=== PATIENT | female | born 1995 | race Hispanic/Latino ===

== ENCOUNTER 2017-11-26 23:02 | Emergency (ER) | payer BC ==
[2017-11-26 23:09] VITALS: BP 130/76; PULSE 115; RESP 16; O2SAT 100
--- NOTE | 2017-11-26 23:58 | ED PDOC ---
History of Present Illness History of Present Illness: 22 year old female presents to ED with complaints of flu-like symptoms and has no past medical history. (+) headache, body aches, chills, and decreased PO intake. (-) nausea, vomiting, or diarrhea. Notes that ibuprofen has provided little to no relief. Denies receiving the flu vaccine this flu season. PCP: None HPI: Influenza Time Seen by Provider: 11/26/17 23:12 Chief Complaint: Flu-like Symptoms Chief Complaint (Provider): Flu-Like Symptoms History Per: Patient Exam Limitations: no limitations Onset/Duration Of Symptoms: Days (x1) Symptoms include: headache, bodyaches Past Medical History Reviewed: Historical Data, Nursing Documentation, Vital Signs Vital Signs: Last Vital Signs Temp 101.2 F H 11/26/17 23:06 Pulse 115 H 11/26/17 23:06 Resp 16 11/26/17 23:06 BP 130/76 11/26/17 23:06 Pulse Ox 100 11/26/17 23:06 - Medical History PMH: No Chronic Diseases - Surgical History Surgical History: No Surg Hx - Family History Family History: States: Unknown Family Hx - Social History Current smoker - smoking cessation education provided: No Ex-Smoker (has not smoked in the last 12 months): No Alcohol: None Drugs: Denies - Home Medications Home Medications: Ambulatory Orders Medication Instructions Recorded Oseltamivir [Tamiflu] 75 mg PO BID #10 cap 11/26/17 - Allergies Allergies/Adverse Reactions: Allergies Allergy/AdvReac Type Severity Reaction Status Date / Time phenytoin [From Dilantin] Allergy ANAPHYLAXIS Verified 11/26/17 23:55 Review of Systems ROS Statement: Except As Marked, All Systems Reviewed And Found Negative Constitutional: Positive for: Chills, Other ((+) body aches) Gastrointestinal: Positive for: Other ((+) decreased PO intake). Negative for: Nausea, Vomiting, Diarrhea Neurological: Positive for: Headache Physical Exam - Reviewed Nursing Documentation Reviewed: Yes Vital Signs Reviewed: Yes - Physical Exam Appears: Positive for: Non-toxic, No Acute Distress (Patient is febrile) Skin: Positive for: Normal Color, Warm, Dry Eye Exam: Positive for: Normal appearance ENT: Positive for: Normal ENT Inspection Cardiovascular/Chest: Positive for: Regular Rate, Rhythm, Tachycardia Respiratory: Positive for: Normal Breath Sounds, Other (Patient is actively coughing). Negative for: Respiratory Distress Gastrointestinal/Abdominal: Positive for: Normal Exam, Soft. Negative for: Tenderness Neurologic/Psych: Positive for: Alert, Oriented. Negative for: Motor/Sensory Deficits Medical Decision Making Medical Decision Makin Initial impression: clinical influenza Initial plan: * UPreg * UDip * Tamiflu 75mg PO * Acetaminophen 975mg PO * Re-eval 0027 Upon re-evaluation, patient notes improvement in symptoms and is afebrile. Patient is stable for discharge home with a prescription for Tamiflu. Dx: influenza Scribe Attestation: Documented by Deborah Arizmendi acting as a scribe Tito Sands MD. Scribe Attestation: All medical record entries made by the Scribe were at my direction and personally dictated by me. I have reviewed the chart and agree that the record accurately reflects my personal performance of the history, physical exam, medical decision making, and the department course for this patient. I have also personally directed, reviewed, and agree with the discharge instructions and disposition. - ECG O2 Sat by Pulse Oximetry: 100 (RA) Pulse Ox Interpretation: Normal Disposition - Clinical Impression Clinical Impression: Influenza - Disposition Disposition: Routine/Home Disposition Time: 00:27 Condition: STABLE Prescriptions: Oseltamivir [Tamiflu] 75 mg PO BID #10 cap Instructions: Flu Forms: [facility] (Hungarian), [facility] ED School/Work Excuse
[2017-11-27 00:23] VITALS: TEMP 100.5
== END 2017-11-27 00:36 | disposition home or self-care (01) ==
LOC: H.ER 23:02
DX: J11.1 Influenza due to unidentified influenza virus with other respiratory manifestations (principal)

== ENCOUNTER 2017-11-28 21:38 | Observation (INO) | payer BC ==
[2017-11-28] MEDS ORDERED: Sodium Chloride 0.9% 1,000 ML IV STA (23:20)
[2017-11-28 23:57] LABS: EOS % 0.8 % (0.0-4.0); HEMOGLOBIN 13.1 g/dL (12.0-16.0); LYMPH # 1.4 K/uL (1.0-4.3); MEAN CELL VOLUME 91.3 fl (81.0-99.0); MEAN CORPUSCULAR HEMOGLOBIN 29.9 pg (27.0-31.0); MEAN CORPUSCULAR HGB CONC 32.8 g/dL (33.0-37.0); MONO # 0.4 K/uL (0.0-0.8); MONO % 14.3 % (0.0-10.0); NEUT # 0.9 K/uL (1.8-7.0); NEUT % 32.9 % (50.0-75.0); NRBC % 0.2 % (0.0-0.0); RBC 4.39 Mil/uL (3.80-5.20); RED CELL DISTRIBUTION WIDTH 13.4 % (11.5-14.5); WHITE BLOOD COUNT 2.7 K/uL (4.8-10.8)
[2017-11-29 00:03] LABS: SQUAMOUS EPITHIAL 2 /hpf (0-5); URINE BACTERIA RARE (<OCC); URINE BILIRUBIN NEGATIVE (NEGATIVE); URINE BLOOD SMALL (NEGATIVE); URINE CLARITY SLIGHTY-CLOUDY (Clear); URINE COLOR YELLOW (YELLOW); URINE GLUCOSE (UA) NEG (Normal); URINE LEUKOCYTE ESTERASE NEG Leu/uL (Negative); URINE PROTEIN NEGATIVE (NEGATIVE); URINE UROBILINOGEN 0.2-1.0 mg/dL (0.2-1.0)
[2017-11-29 00:05] LABS: ALB/GLOB RATIO 1.1 (1.0-2.1); ALBUMIN 3.9 g/dL (3.5-5.0); ALT/SGPT 33 U/L (9-52); AST/SGOT 29 U/L (14-36); BLOOD UREA NITROGEN 11 mg/dl (7-17); GFR AFRICAN-AMERICAN > 60; GFR NON-AFRICAN AMERICAN > 60
--- NOTE | 2017-11-29 00:08 | CT ---
EXAM: CT Abdomen and Pelvis Without Intravenous Contrast EXAM DATE/TIME: 11/28/2017 11:20 PM CLINICAL HISTORY: 22 years old, female; Pain; Abdominal pain; Flank; Right; Additional info: Abd pain TECHNIQUE: Axial computed tomography images of the abdomen and pelvis without intravenous contrast. All CT scans at this facility use one or more dose reduction techniques, viz.: automated exposure control; ma/kV adjustment per patient size (including targeted exams where dose is matched to indication; i.e. head); or iterative reconstruction technique. Coronal and sagittal reformatted images were created and reviewed. COMPARISON: There are no prior studies for comparison. FINDINGS: Lower thorax: Heart size is normal. Lung bases are clear ABDOMEN: Liver: unremarkable Gallbladder and bile ducts: unremarkable Pancreas: unremarkable Spleen: unremarkable Adrenals: unremarkable Kidneys and ureters: unremarkable Stomach and bowel: Stomach is partially distended with an air-fluid level. Rotation is normal. There is a nonobstructed bowel gas pattern. There is air throughout the small bowel. Paucity of fat and lack of oral and intravenous contrast limits evaluation of the ileocecal region. Terminal ileum is unremarkable. Appendix is not identified. Cecum is low in the pelvis. There is air and stool throughout the colon. Appendix: See stomach and bowel PELVIS: Bladder: unremarkable Reproductive: Uterus and adnexa are not optimally evaluated. ABDOMEN and PELVIS: Intraperitoneal space: Gallbladder is partially distended. Common duct is not well-demonstrated. Kidneys and is a small amount of free fluid in the pelvis.There is no free air. Bones/joints: There are no acute osseous abnormalities. Soft tissues: unremarkable Vasculature: Vascular structures are unremarkable. Lymph nodes: There is no pathologic adenopathy. IMPRESSION: Limited evaluation of the abdomen and pelvis secondary to lack of oral and intravenous contrast and paucity of body fat, no renal or ureteral stones or hydronephrosis; nonvisualization the appendix but no pericecal inflammatory change Additional nonemergent findings as described above.
[2017-11-29] MEDS ORDERED: cefTRIAXone 2 GM in Dextrose 5% In Water 100 ML IVPB SCH (00:15)
--- NOTE | 2017-11-29 00:26 | ED PDOC ---
HPI: General Adult Time Seen by Provider: 11/28/17 22:39 Chief Complaint (Nursing): GI Problem Chief Complaint (Provider): Flank Pain History Per: Patient History/Exam Limitations: no limitations Onset/Duration Of Symptoms: Hrs (since last night) Current Symptoms Are (Timing): Still Present Additional Complaint(s): 22 year old female presents to ED with complaints of right flank pain and has no past medical history. Patient states she was diagnosed in the ED with flu 2 days ago and has been taking the prescribed doses of Tamiflu. (+) diarrhea. (-) vomiting, fever, or urinary symptoms. PCP: None Past Medical History Reviewed: Historical Data, Nursing Documentation, Vital Signs Vital Signs: Last Vital Signs Temp 99.4 F 11/28/17 21:54 Pulse 122 H 11/28/17 21:54 Resp 20 11/28/17 21:54 BP 127/75 11/28/17 21:54 Pulse Ox 99 11/28/17 21:54 - Medical History PMH: No Chronic Diseases - Family History Family History: States: Unknown Family Hx - Social History Alcohol: None Drugs: Denies - Home Medications Home Medications: Ambulatory Orders Medication Instructions Recorded Oseltamivir [Tamiflu] 75 mg PO BID #10 cap 11/26/17 - Allergies Allergies/Adverse Reactions: Allergies Allergy/AdvReac Type Severity Reaction Status Date / Time phenytoin [From Dilantin] Allergy ANAPHYLAXIS Verified 11/28/17 22:00 Review of Systems ROS Statement: Except As Marked, All Systems Reviewed And Found Negative Constitutional: Negative for: Fever Gastrointestinal: Positive for: Diarrhea. Negative for: Vomiting Musculoskeletal: Positive for: Other ((+) right flank pain) Physical Exam - Reviewed Nursing Documentation Reviewed: Yes Vital Signs Reviewed: Yes - Physical Exam Appears: Positive for: Non-toxic, No Acute Distress Skin: Positive for: Normal Color, Warm, Dry Cardiovascular/Chest: Positive for: Regular Rate, Rhythm, Tachycardia Respiratory: Positive for: Normal Breath Sounds, Other (patient has a dry cough) . Negative for: Respiratory Distress Gastrointestinal/Abdominal: Positive for: Soft, Tenderness (mild right flank tenderness) Neurologic/Psych: Positive for: Alert, Oriented. Negative for: Motor/Sensory Deficits - Laboratory Results Result Diagrams: 11/28/17 23:53 11/28/17 23:53 - ECG O2 Sat by Pulse Oximetry: 99 (RA) Pulse Ox Interpretation: Normal Medical Decision Making Medical Decision Makin Initial impression: side effect from medicine, flank pain r/o stone r/o UTI Initial plan: * CT A/P * Labs * NS IV * Urine C&S * UA 0000 Patient will be signed out to Dr. Sands pending ED work up. Scribe Attestation: Documented by Deborah Arizmendi acting as a scribe for Zoë Pfeiffer MD. Scribe Attestation: All medical record entries made by the Scribe were at my direction and personally dictated by me. I have reviewed the chart and agree that the record accurately reflects my personal performance of the history, physical exam, medical decision making, and the department course for this patient. I have also personally directed, reviewed, and agree with the discharge instructions and disposition. Disposition - Patient ED Disposition Is Patient to be Admitted: Transfer of Care - Disposition Disposition Time: 00:00 Condition: STABLE Patient Signed Over To: Tito Sands Handoff Comments: pending ED work up
--- NOTE | 2017-11-29 00:31 | ED PDOC ---
- Laboratory Results Result Diagrams: 11/28/17 23:53 11/28/17 23:53 - ECG O2 Sat by Pulse Oximetry: 99 (RA) Medical Decision Making Medical Decision Makin Patient endorsed to this physician from Dr. Pfeiffer pending ED work up. 0008 CT FINDINGS: Lower thorax: Heart size is normal. Lung bases are clear ABDOMEN: Liver: unremarkable Gallbladder and bile ducts: unremarkable Pancreas: unremarkable Spleen: unremarkable Adrenals: unremarkable Kidneys and ureters: unremarkable Stomach and bowel: Stomach is partially distended with an air-fluid level. Rotation is normal. There is a nonobstructed bowel gas pattern. There is air throughout the small bowel. Paucity of fat and lack of oral and intravenous contrast limits evaluation of the ileocecal region. Terminal ileum is unremarkable. Appendix is not identified. Cecum is low in the pelvis. There is air and stool throughout the colon. Appendix: See stomach and bowel PELVIS: Bladder: unremarkable Reproductive: Uterus and adnexa are not optimally evaluated. ABDOMEN and PELVIS: Intraperitoneal space: Gallbladder is partially distended. Common duct is not well-demonstrated. Kidneys and is a small amount of free fluid in the pelvis.There is no free air. Bones/joints: There are no acute osseous abnormalities. Soft tissues: unremarkable Vasculature: Vascular structures are unremarkable. Lymph nodes: There is no pathologic adenopathy. IMPRESSION: Limited evaluation of the abdomen and pelvis secondary to lack of oral and intravenous contrast and paucity of body fat, no renal or ureteral stones or hydronephrosis; nonvisualization the appendix but no pericecal inflammatory change Additional nonemergent findings as described above. * Rocephin IVPB * Blood Cx 0235 Upon re-evaluation, patient is still mildly tachycardic. Given that this is the second visit in 48 hours, patient will be admitted for further treatment. In the provider's opinion, the patient's low WBC count is also likely indicative of possible early sepsis. Patient will be admitted under INPATIENT MED/SURG under Dr. Cote's service for pyelonephritis. Patient will also be placed in isolation due to the diagnosis of the flu-like illness 48 hours ago. Condition: fair 0508 Leaving Against Medical Advice (AMA): This patient is choosing to leave against medical advice. The EP has personally explained to the pt that choosing to do so may result in permanent bodily harm or . The EP discussed at great length that without further evaluation and monitoring there may be unforeseen circumstances and/or deterioration causing permanent bodily harm or as a result of their choice. The pt verbalized these risks back to the physician in laymans terms. The pt is alert , oriented, and shows the mental capacity to make clear decisions regarding the pts health care at this time. The pt continues to wish to leave against medical advice. In light of the pts decision to leave AMA, follow-up has been arranged and the pt is aware of the importance of following up as instructed. The pt has been advised that they should return to the ED immediately if they change their mind at any time, or if thier condition begins to change or worsen in any way. Scribe Attestation: Documented by Deborah Arizmendi acting as a scribe Tito Sands MD. Scribe Attestation: All medical record entries made by the Scribe were at my direction and personally dictated by me. I have reviewed the chart and agree that the record accurately reflects my personal performance of the history, physical exam, medical decision making, and the department course for this patient. I have also personally directed, reviewed, and agree with the discharge instructions and disposition. Disposition - Clinical Impression Clinical Impression: Pyelonephritis - POA Present On Arrival: None - Disposition Disposition: AGAINST MEDICAL ADVICE Disposition Time: 05:10 Condition: FAIR
[2017-11-29 02:34] VITALS: RESP 14
[2017-11-29] MEDS ORDERED: Sodium Chloride 0.9% 1,000 ML IV STA (02:36)
[2017-11-29 02:49] VITALS: O2SAT 99
[2017-11-29 03:10] LABS: VENOUS BLOOD GAS BASE EXCESS 2.7 mmol/L (0.0-2.0); VENOUS BLOOD GAS PCO2 44 mmHg (40-60); VENOUS BLOOD GAS PO2 30 mm/Hg (30-55); VENOUS BLOOD PH 7.41 (7.32-7.43)
[2017-11-29 05:12] VITALS: BP 112/61; PULSE 99; TEMP 98.1
== END 2017-11-29 05:16 | disposition left against medical advice (07) ==
LOC: H.ER 21:38 → H.ERHOLD 11-29 02:35 → INTOOBSV 11-29 02:35
PROVIDERS: ADMIT Internal Medicine; ATTEND Internal Medicine
DX: N12 Tubulo-interstitial nephritis, not specified as acute or chronic (principal); R00.0 Tachycardia, unspecified; R19.7 Diarrhea, unspecified
CPT/HCPCS: 74176; 80053; 81003; 81025; 82803; 85025; 87040; 87086; 96374; 99285; G0378; J0696; J7040